=== PATIENT | female | born 1990 | race African-American/Black ===

== ENCOUNTER 2021-08-05 09:57 | Emergency (ER) | payer MEDICAID ==
[~2021-08-05] VITALS: Ht 170.2 cm; Wt 55.2 kg
[2021-08-05 11:53] VITALS: BP 104/69
== END 2021-08-05 12:08 | disposition home or self-care (01) ==
LOC: ED 12:00
DX: R51.9 Headache, unspecified (principal); F41.1 Generalized anxiety disorder; R11.0 Nausea; R94.31 Abnormal electrocardiogram [ECG] [EKG]
CPT/HCPCS: 70551; 80048; 81003; 82040; 82962; 85025; 93005; 96374; 99285; J2060